=== PATIENT | female | born 2000 | race Caucasian/White ===

== ENCOUNTER 2018-08-21 12:56 | Day surgery (SDC) | payer BC ==
[~2018-08-21] VITALS: Ht 175.3 cm; Wt 103.2 kg
[2018-08-21] MEDS ORDERED: NATURAL IRON65 MG PO (13:18)
[2018-08-21] MEDS ORDERED: ZOLOFT 50MG50 MG PO (13:18)
[2018-08-21] MEDS ORDERED: YAZ 28 3 MG-0.01 TAB PO (13:19)
[2018-08-21 13:36] VITALS: BP 125/76; PULSE 70; TEMP 98
[2018-08-21 14:55] VITALS: BP 106/61; PULSE 69; TEMP 98.4
--- NOTE | 2018-08-21 14:55 | NUR ---
Patient brought back to [facility]. Alert and oritented. Ambulated to chair without difficulty. Denies and nausea or pain. Vital signs obtained, WNL. States she would like juice and crackers. No difficulty swallowing. Mother at bedside. Call sellers within reach, will continue to monitor.
[2018-08-21 15:10] VITALS: BP 110/71; PULSE 70
--- NOTE | 2018-08-21 15:10 | NUR ---
Patient states that she is feeling good. Vital signs stable. Requesting more juice. Tolerating food and drink well. Will continue to monitor.
[2018-08-21 15:25] VITALS: BP 108/66; PULSE 61
--- NOTE | 2018-08-21 15:25 | NUR ---
Patient states that she is feeling ready to go home. Vital signs WNL. Tolerating food and drink well, no complaints of nausea. Will continue to monitor.
--- NOTE | 2018-08-21 15:30 | NUR ---
Discharge instructions reviewed with patient and mother. Verbalized understanding. IV removed per orders, tolerated well. Patient to get dressed at this time. Will continue to monitor.
--- NOTE | 2018-08-21 15:45 | NUR ---
Patient brought down to lobby via wheel chair. Mother to drive patient back home.
== END 2018-08-21 15:45 | disposition home or self-care (01) ==
LOC: SDCO 12:56
DX: R10.13 Epigastric pain (principal); R10.12 Left upper quadrant pain; R19.7 Diarrhea, unspecified; K59.00 Constipation, unspecified; D50.9 Iron deficiency anemia, unspecified; Z79.899 Other long term (current) drug therapy
CPT/HCPCS: J2250; J2405; J3010; J7030

== ENCOUNTER → 2019-03-27 | Outpatient (CLI) | payer BC ==
[~2019-03-27] MED LIST: NATURAL IRON65 MG PO; YAZ 28 3 MG-0.01 TAB PO; ZOLOFT 50MG50 MG PO
== END ==
LOC: COL.RAD 15:00
DX: D27.0 Benign neoplasm of right ovary (principal)